=== PATIENT | male | born 2005 | race Two or more races ===

== ENCOUNTER 2024-01-12 23:18 | Emergency (ER) | payer SELFPAY ==
[~2024-01-12] VITALS: Ht 175.3 cm; Wt 85.0 kg
[2024-01-12 23:54] VITALS: O2SAT 100
[2024-01-13] MEDS ORDERED: OFLO5DRO4 LEFT EAR (01:57)
[2024-01-13] MEDS: IBUPROFEN 600MG TABLET PO ONE (02:05)
[2024-01-13 02:11] VITALS: BP 116/68; PULSE 77; RESP 18; TEMP 97.9
== END 2024-01-13 02:14 | disposition home or self-care (01) ==
LOC: ER 23:48
DX: H60.332 Swimmer's ear, left ear (principal); H60.8X2 Other otitis externa, left ear
CPT/HCPCS: 99283